=== PATIENT | male | born 1975 | race Caucasian/White ===

== ENCOUNTER → 2016-11-24 | Outpatient (CLI) | payer OTHER ==
--- NOTE | 2016-11-26 07:43 | XCELERA REPORT ---
[address] [address] Lower Extremity Arterial Evaluation Name: KESHIA ARAIZA JR Age: 41 yrs Gender: Male : 1975 Patient Status: Outpatient Patient Location: Study Date: 11/24/2016 03:28 PM Procedure: A color flow and duplex scan of the lower extremity arteries was performed bilaterally with velocity and waveform anaylsis. Ankle brachial indicies performed. 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 The ankle-brachial index is 1.26. 0 % stenosis is noted. Left Side Arterial Evaluation Normal velocity, waveform and triphasic flow are present, from the Common Femoral artery down to the infrageniculate vessels. The ankle-brachial index is 1.25. 0 % stenosis is noted. Interpretation Summary No hemodynamically significant lesions in the bilateral lower extremities, on duplex imaging, at rest. : GERALDO RHODES > Jason Kelsey
== END ==
LOC: SP 15:04
PROVIDERS: ATTEND Internal Medicine Cardiovascular Disease
DX: I73.9 Peripheral vascular disease, unspecified (principal)
CPT/HCPCS: 93925